=== PATIENT | female | born 1975 | race American Indian/Alaskan Native ===

== ENCOUNTER 2017-12-14 20:21 | Emergency (ER) | payer SELFPAY ==
[2017-12-14 21:37] LABS: Mean Corpuscular HGB Conc 28 % (30-34); Platelet Count 404 K/mm3 (140-440); Red Blood Count 4.28 M/mm3 (3.65-5.03)
[2017-12-14 21:51] LABS: Hemoglobin 6.6 gm/dl (10.1-14.3)
[2017-12-14 21:52] LABS: Hematocrit 24.1 % (30.3-42.9); Mean Corpuscular Hemoglobin 16 pg (28-32); Mean Corpuscular Volume 56 fl (79-97); Red Cell Distribution Width 20.3 % (13.2-15.2)
[2017-12-15] MEDS ORDERED: TRIMOX PO ONE (00:05)
[2017-12-15] MEDS ORDERED: MOTRIN PO ONE (00:05)
[2017-12-15] MEDS ORDERED: TRIMOX ONE (00:05)
[2017-12-15] MEDS ORDERED: MOTRIN ONE (00:05)
--- NOTE | 2017-12-15 00:10 | Emergency Department Report ---
ED General Adult HPI - General Chief complaint: Dental/Oral Stated complaint: HEADACHE Time Seen by Provider: 12/14/17 23:45 Source: patient Mode of arrival: Ambulatory Limitations: No Limitations - History of Present Illness Initial comments: Chief complaint: Toothache, urinary tract infection, anemia 42-year-old woman presents with one-day history of left mandibular molar toothache, predominantly with aching sensation, without any drainage. Tooth has been chipped on one of the edges, has been filled previously, but has not been draining, and she has only sensation of pain in the area of the left ear, she has had the posterior molar left mandibular area extracted secondary to decay. She is asking for [id number] medication, with a prescription for ibuprofen, declined offer of stronger pain medication. Patient also has a history of chronic anemia, dating back years, secondary to chronic corn starch ingestion. She's had prior transfusions, but even on advising that she has a significant anemia generally warranting transfusion, declines offer, and requests only iron supplements and medication for constipation as well. Patient also reports dysuria, feel she has a urinary tract infection, and wants check of urine. She has no fever chills or diaphoresis, no flank pain, no back pain, no nausea or vomiting. Onset/Timin -: days(s) Location: mouth Severity scale (0 -10): 5 Quality: aching Improves with: none Worsens with: none Associated Symptoms: denies other symptoms Treatments Prior to Arrival: none - Related Data Previous Rx's Medication Instructions Recorded Last Taken Type Amoxicillin/Potassium Clav 1 each PO BID #20 tablet 12/15/17 Unknown Rx [Augmentin 875-125 Tablet] Docusate Sodium [Colace] 100 mg PO BID PRN #60 capsule 12/15/17 Unknown Rx Ferrous Gluconate [Iron 236 MG tab] 236 mg PO DAILY #30 tablet 12/15/17 Unknown Rx Ibuprofen 800 mg PO TID PRN #60 tablet 12/15/17 Unknown Rx Polyethylene Glycol 3350 [Miralax 17 gm PO QDAY #60 packet 12/15/17 Unknown Rx 3350] Allergies Allergy/AdvReac Type Severity Reaction Status Date / Time No Known Allergies Allergy Unverified 12/14/17 20:55 ED Review of Systems ROS: Stated complaint: HEADACHE Other details as noted in HPI Comment: All other systems reviewed and negative Constitutional: no symptoms reported. denies: chills, diaphoresis, fever ENT: dental pain (left mandibular molar, # 19) Respiratory: no symptoms reported Cardiovascular: denies: chest pain, palpitations Endocrine: no symptoms reported Gastrointestinal: denies: nausea, vomiting Genitourinary: dysuria, frequency Musculoskeletal: denies: back pain, joint swelling, arthralgia Skin: denies: rash, lesions Neurological: denies: headache, weakness, paresthesias Psychiatric: denies: anxiety, depression Hematological/Lymphatic: denies: easy bleeding, easy bruising ED Past Medical Hx - Past Medical History Previous Medical History?: Yes Additional medical history: Anemia - Surgical History Past Surgical History?: Yes Additional Surgical History: C Section - Social History Smoking Status: Never Smoker - Medications Home Medications: Home Medications Medication Instructions Recorded Confirmed Last Taken Type Amoxicillin/Potassium Clav 1 each PO BID #20 tablet 12/15/17 Unknown Rx [Augmentin 875-125 Tablet] Docusate Sodium [Colace] 100 mg PO BID PRN #60 capsule 12/15/17 Unknown Rx Ferrous Gluconate [Iron 236 MG tab] 236 mg PO DAILY #30 tablet 12/15/17 Unknown Rx Ibuprofen 800 mg PO TID PRN #60 tablet 12/15/17 Unknown Rx Polyethylene Glycol 3350 [Miralax 17 gm PO QDAY #60 packet 12/15/17 Unknown Rx 3350] ED Physical Exam - General Limitations: No Limitations General appearance: alert, in distress (mild to moderate discomfort from left toothache) - Head Head exam: Present: atraumatic - Eye Eye exam: Present: PERRL, EOMI - ENT ENT exam: Present: other (partial chip fracture medial aspect left and right lower molar, 19, no active drainage, no swelling) - Neck Neck exam: Present: normal inspection. Absent: tenderness, full ROM - Respiratory Respiratory exam: Present: normal lung sounds bilaterally. Absent: respiratory distress, wheezes, rales, rhonchi - Cardiovascular Cardiovascular Exam: Present: regular rate. Absent: normal heart sounds - GI/Abdominal GI/Abdominal exam: Present: soft, normal bowel sounds. Absent: tenderness, rebound - Rectal Rectal exam: Present: deferred - Extremities Exam Extremities exam: Present: normal inspection, full ROM - Back Exam Back exam: Present: normal inspection. Absent: tenderness, CVA tenderness (R), CVA tenderness (L) - Neurological Exam Neurological exam: Present: alert, oriented X3 - Psychiatric Psychiatric exam: Present: normal affect, normal mood - Skin Skin exam: Present: warm, dry, intact, normal color. Absent: rash ED Course Vital Signs 12/14/17 12/14/17 12/15/17 20:19 20:57 00:58 Temperature 36.9 C 36.9 C Pulse Rate 79 88 Respiratory 18 18 18 Rate Blood Pressure 125/61 125/61 O2 Sat by Pulse 99 99 Oximetry ED Medical Decision Making - Lab Data Result diagrams: 12/14/17 21:08 - Medical Decision Making Patient has typical on [place] area, with no signs of acute abscess, but patient will be treated with antibiotics, and ibuprofen. She also has moderate findings of urinary tract infection, although there is significant contamination , the patient also has a significant anemia, but declines offer for transfusion , and will be treated with iron supplementation, as well as stool softeners. She should follow with her physician for monitoring her anemia. Critical care attestation.: If time is entered above; I have spent that time in minutes in the direct care of this critically ill patient, excluding procedure time. ED Disposition Clinical Impression: Pain, dental Anemia Qualifiers: Anemia type: iron deficiency Iron deficiency anemia type: other iron deficiency Qualified Code(s): D50.8 - Other iron deficiency anemias Urinary tract infection Qualifiers: Urinary tract infection type: acute cystitis Disposition: - TO HOME OR SELFCARE Is pt being admited?: No Does the pt Need Aspirin: No Condition: Stable Instructions: Dental Caries (ED), Toothache (ED) Prescriptions: Amoxicillin/Potassium Clav [Augmentin 875-125 Tablet] 1 each PO BID #20 tablet Docusate Sodium [Colace] 100 mg PO BID PRN #60 capsule PRN Reason: Constipation Ferrous Gluconate [Iron 236 MG tab] 236 mg PO DAILY #30 tablet Ibuprofen 800 mg PO TID PRN #60 tablet PRN Reason: Pain, Moderate (4-6) Polyethylene Glycol 3350 [Miralax 3350] 17 gm PO QDAY #60 packet Referrals: PRIMARY CARE, [Primary Care Provider] - 3-5 Days
[2017-12-15 01:08] LABS: Bacteria,Urine 2+ /HPF (Negative); Bilirubin,Urine NEG (Negative); Blood,Urine NEG (Negative); Color,Urine Yellow (Yellow); Mucus,Urine 3+ /HPF; Protein,Urine <15 mg/dL mg/dL (Negative); Urobilinogen,Urine < 2.0 mg/dL (<2.0)
[2017-12-15 01:09] LABS: HCG Qualitative,Urine Negative (Negative)
[2017-12-15 01:31] VITALS: BP 128/64
== END 2017-12-15 01:37 | disposition home or self-care (01) ==
LOC: ED 20:21
DX: K08.89 Other specified disorders of teeth and supporting structures (principal); N30.00 Acute cystitis without hematuria; D50.8 Other iron deficiency anemias
CPT/HCPCS: 36415; 81001; 81025; 85027; 99283